=== PATIENT | male | born 1980 | race African-American/Black ===

== ENCOUNTER 2017-09-19 10:11 | Emergency (ER) | payer SELFPAY ==
[~2017-09-19] VITALS: Ht 177.8 cm; Wt 65.8 kg
[2017-09-19 10:40] VITALS: BP 142/93
[2017-09-19] MEDS ORDERED: KETOROLAC TROMETH 60MG/2ML VIAL IM ONE (11:00)
== END 2017-09-19 11:23 | disposition home or self-care (01) ==
LOC: ER 10:11
DX: K04.7 Periapical abscess without sinus (principal)
CPT/HCPCS: 96372; 99283; J1885